=== PATIENT | male | born 1950 | race Caucasian/White ===

== ENCOUNTER 2016-10-23 09:19 | Outpatient (CLI) | payer MEDICARE ==
[2016-10-23 09:57] LABS: CALCIUM 9.3 mg/dL (8.5-10.3); CREATININE 1.3 mg/dL (0.6-1.2); POTASSIUM 3.2 mmol/L (3.5-5.0)
[2016-10-23 10:27] LABS: HEMOGLOBIN A1C 0.82 g/dL
== END 2016-10-23 09:20 | disposition home or self-care (01) ==
LOC: LAB 09:19
PROVIDERS: ATTEND Family Medicine
DX: E87.6 Hypokalemia (principal); Z68.30 Body mass index [BMI] 30.0-30.9, adult
CPT/HCPCS: 36415; 80048; 83036

== ENCOUNTER 2016-11-27 09:33 | Outpatient (CLI) | payer MEDICARE ==
[2016-11-27 09:53] LABS: CALCIUM 9.5 mg/dL (8.5-10.3); CREATININE 1.1 mg/dL (0.6-1.2)
== END 2016-11-27 09:34 | disposition home or self-care (01) ==
LOC: LAB 09:33
PROVIDERS: ATTEND Family Medicine
DX: E87.6 Hypokalemia (principal)
CPT/HCPCS: 36415; 80048

== ENCOUNTER 2017-03-06 11:12 | Outpatient (CLI) | payer MEDICARE ==
[2017-03-06 12:04] LABS: ALBUMIN/GLOBULIN RATIO 1.5 (1.0-2.2); BILIRUBIN,TOTAL 0.7 mg/dL (0.2-1.0); BUN - BLOOD UREA NITROGEN 22 mg/dL (6-20); CALCIUM 9.3 mg/dL (8.5-10.3); CARBON DIOXIDE - CO2 24 mmol/L (21-32); CHLORIDE 104 mmol/L (101-111); CHOL/HDL RATIO 4.1 (<5.0); CHOLESTEROL 130 mg/dL; GFR - MDRD 75 (>89); GLUCOSE 104 mg/dL (70-100); HDL CHOLESTEROL 32 mg/dL; LDL/HDL RATIO 2.4 (<3.6); POTASSIUM 4.1 mmol/L (3.5-5.0); SODIUM 137 mmol/L (135-145); TOTAL PROTEIN 7.1 g/dL (6.7-8.2); TRIGLYCERIDES 104 mg/dL; VLDL CHOLESTEROL 21 mg/dL
[2017-03-06 12:13] LABS: HEMOGLOBIN A1C 0.77 g/dL
== END 2017-03-06 11:13 | disposition home or self-care (01) ==
LOC: LAB 11:12
PROVIDERS: ATTEND Family Medicine
DX: E11.9 Type 2 diabetes mellitus without complications (principal); E78.5 Hyperlipidemia, unspecified
CPT/HCPCS: 36415; 80053; 80061; 83036

== ENCOUNTER 2017-06-05 09:53 | Outpatient (CLI) | payer SELFPAY ==
[2017-06-05] MEDS ORDERED: IVABRADINE 7.5 MG PO ONE (10:38)
[2017-06-05] MEDS ORDERED: IOPAMIDOL-300 100 ML VIAL ONE (10:55)
[2017-06-05] MEDS ORDERED: METOPROLOL 5 MG/5 ML VIAL IVP ONE (12:00)
[2017-06-05] MEDS: NITROGLYCERIN SL 0.4 MG TABLET SL ONE ×2 (12:10→12:29)
[2017-06-05 12:52] VITALS: BP 117/61
[2017-06-05] MEDS ORDERED: IOPAMIDOL-300 100 ML VIAL IVP ONE (13:12)
--- NOTE | 2017-06-06 15:44 | CT Report ---
EXAM: CORONARY ARTERY CTA EXAM DATE: 06/05/2017 12:00 PM. CLINICAL HISTORY: Screening (volunteer). COMPARISON: None. TECHNIQUE: Axial sections were obtained through the heart following the intravenous administration of 75 mL of Isovue 300. 3D reconstructions were obtained. In accordance with CT protocol optimization, one or more of the following dose reduction techniques w ere utilized for this exam: automated exposure control, adjustment of mA and/or KV based on patient s ize, or use of iterative reconstructive technique. FINDINGS: CALCIUM SCORE: The LMA equals 0. The LAD equals 135.09. The left circumflex equals 0. The RCA equals 60.37. The total calcium score is 195.46. The patient is in the 63rd percentile rank. This means th at 37 % of the patients in this age group will have a higher calcium score. DOMINANT ARTERY: Dominant right coronary artery. LEFT MAIN: Moderate caliber vessel which arises anatomic in origin from the left coronary sinus and g malika rise to the left anterior descending and left circumflex coronary arteries in either a ramus bra nch versus early bifurcating first obtuse marginal branch arising from the left circumflex coronary a rtery. No atheromatous disease. No stenosis. LEFT ANTERIOR DESCENDING: Moderate caliber vessel which arises anatomic in origin from the left main coronary artery and gives rise to small caliber first diagonal branch, small to moderate caliber seco nd diagonal branch, and a small caliber third diagonal branch and then extends over the left ventricu lar apex. Small foci of calcified and noncalcified plaque are present in the proximal left anterior d escending coronary artery, causing known more than mild (25-50% %) stenosis which is more likely acce ntuated by the artifact by the calcified plaque. Minimal luminal irregularities are seen more distall y. LEFT CIRCUMFLEX: Small-caliber vessel which arises anatomic in origin from the left main coronary art misbah and gives rise to possibly to an early small-caliber first obtuse marginal branch and then a very small caliber second obtuse marginal branch and then terminates along a third obtuse marginal branch along the left atrioventricular groove. No atheromatous disease. No stenosis. RIGHT CORONARY ARTERY: Moderate caliber vessel which arises anatomic in origin from the right coronar y sinus and gives rise to small acute marginal branches and the posterior descending coronary artery and left ventricular branches. Small foci of calcified plaque in the right proximal coronary artery w ith minimal luminal irregularities causing no more than minimal (less than 25%) stenosis. No severe s tenosis. Cardiac Morphology: Heart size upper normal. No evidence for left atrial appendage thrombus. Appropri ate right and left pulmonary veins enter the left atrium. THORACIC AORTA: The sinuses of Valsalva measure 3.1 cm. The sinotubular junction measures 2.7 cm. The proximal ascending thoracic aorta measures 3.1 cm. No dissection. No significant atheromatous diseas e in the ascending aorta except for punctate calcified plaque along the aortic root. Maximal size of mid descending thoracic aorta measures 2.4 cm. Mild calcified and noncalcified atheromatous plaque. N o dissection. LEFT ATRIAL APPENDAGE: None. PULMONARY ARTERIES: Maximal size of the mid main pulmonary artery is 3.5 cm. No evidence of central e mbolus. CHEST/UPPER ABDOMEN: No enlarged mediastinal lymph nodes. Small hiatal hernia. Basilar scar/atelectas is. No endobronchial obstruction. No pneumothorax. No vascular congestion. Included portions of the liver, stomach, and spleen are unremarkable. Degenerative changes of the thoracic spine. IMPRESSION: 1. Dominant right coronary artery. 2. Nonobstructive coronary artery disease involving the left anterior descending and right coronary a rtery causing no more than mild (25-50 %) stenosis which may be in part accentuated by the calcified plaque. No evidence for severe stenosis. 3. Calcium score of 195.46. This places the patient into the 63rd percentile. This means that 37% of patient's of same age have a higher calcium score. TERESITA Referring Provider Line: [phone] SITE ID: [id number]
== END 2017-06-05 13:46 | disposition home or self-care (01) ==
LOC: DI 09:53 → OBS 09:54 → DI 13:46
PROVIDERS: ATTEND Radiology Diagnostic Radiology
DX: Z13.6 Encounter for screening for cardiovascular disorders (principal); I25.10 Atherosclerotic heart disease of native coronary artery without angina pectoris
CPT/HCPCS: 82565; Q9967; 71275

== ENCOUNTER 2017-06-26 05:59 | Day surgery (SDC) | payer MEDICARE, OTHER ==
[2017-06-26] MEDS ORDERED: LACTATED RINGERS 1,000 ML IV ONE (06:34)
[2017-06-26] MEDS ORDERED: BUPIVACAINE 0.25% PF 30 ML VIAL ONE (07:19)
[2017-06-26] MEDS ORDERED: LIDOCAINE MPF 1%-EPI 1:200000 30 ML VIAL ONE (07:20)
[2017-06-26] MEDS ORDERED: KETOROLAC 30 MG/ML VIAL IVP ONE (07:30)
[2017-06-26] MEDS ORDERED: fentaNYL 250 MCG/5 ML VIAL IVP ONE (07:30)
[2017-06-26] MEDS ORDERED: LIDOCAINE 1%-EPI 1:100000 20 ML MDV ONE (07:44)
[2017-06-26] MEDS ORDERED: BUPIVACAINE 0.25% PF 30 ML VIAL SUBQ ONE ×2 (07:56)
[2017-06-26] MEDS ORDERED: LIDOCAINE 1%-EPI 1:100000 20 ML MDV SUBQ ONE ×2 (07:56)
[2017-06-26 08:40] VITALS: BP 142/78
--- NOTE | 2017-06-26 15:16 | OPERATIVE REPORT ---
DATE OF SERVICE: 06/26/2017 Physician: Freddy Hutson MD PREOPERATIVE DIAGNOSIS: Left hand middle and index trigger fingers. POSTOPERATIVE DIAGNOSIS: Left hand middle and index trigger fingers. PROCEDURE PERFORMED: Release of left middle and left index trigger fingers. SURGEON: Freddy Hutson MD ANESTHESIA: Local and MAC. INDICATIONS FOR SURGERY: Zach is a 67-year-old male with 3-4 months of triggering of the middle finger of his left hand and now with new onset triggering of the index finger. The patient has pain associated with this and desires surgical release for resolution. FINDINGS AT SURGERY: Both sheaths and A1 pulleys were unremarkable, and when released resolved triggering as demonstrated by the patient actually actively flexing his hands. DESCRIPTION OF OPERATIVE PROCEDURE: The patient was taken to the operating room and underwent a light sedation anesthetic, after which the left hand was sterilely prepped and draped in standard fashion. The palmar area of proposed incision was between the index and middle finger at the distal palmar crease approximately 1.5 cm in length. This area was infiltrated after the timeout, utilizing 1% lidocaine with epinephrine and 0.25% Marcaine plain, and using only a few mL. Once anesthesia was adequate, an incision was made and dissection carried down to the flexor sheath of first the index finger and then the middle finger. Each of these exposures was excellent, protecting neurovascular bundles, exposing the sheath and directly incising through the A1 winsome with a scalpel. The same procedure then done on the middle finger. At completion, the area was irrigated thoroughly, infiltration was further placed in the palm and closure was with 4-0 nylon interrupted in the skin. Sterile dressings were applied. The patient was then taken to recovery room in stable condition. ESTIMATED BLOOD LOSS: Minimal. COMPLICATIONS: None. COUNTS: Sponge and needle counts correct. TD: 06/26/2017 15:16
== END 2017-06-26 06:00 | disposition home or self-care (01) ==
LOC: SDS 05:59
PROVIDERS: ATTEND Orthopaedic Surgery
PROC: 0LN80ZZ Release Left Hand Tendon, Open Approach (ICD-10-PCS; principal; 2017-06-26 07:30)
DX: M65.352 Trigger finger, left little finger (principal); M65.332 Trigger finger, left middle finger
CPT/HCPCS: 26055; J3010; J7120

== ENCOUNTER 2018-08-15 08:27 | Outpatient (CLI) | payer MEDICARE, OTHER ==
[2018-08-15 08:47] LABS: BASOPHILS # (AUTO) 0.1 10^3/uL (0.0-0.1); BASOPHILS % (AUTO) 1.7 %; EOSINOPHILS # (AUTO) 0.5 10^3/uL (0.0-0.7); HGB - HEMOGLOBIN 14.7 g/dL (14.0-18.0); LYMPHOCYTES # (AUTO) 1.4 10^3/uL (1.5-3.5); LYMPHOCYTES % (AUTO) 24.8 %; MEAN CORPUSCULAR HEMOGLOBIN 30.9 pg (27.0-31.0); MEAN CORPUSCULAR HGB CONC 33.7 g/dL (32.0-36.0); MEAN CORPUSCULAR VOLUME 91.8 fL (80.0-94.0); MEAN PLATELET VOLUME 6.6 fL (7.4-11.4); MONOCYTES # (AUTO) 0.4 10^3/uL (0.0-1.0); MONOCYTES % (AUTO) 6.6 %; NEUTROPHILS # (AUTO) 3.3 10^3/uL (1.5-6.6); NEUTROPHILS % (AUTO) 57.9 %; PLT - PLATELET COUNT 231 10^3/uL (130-450); RED BLOOD COUNT 4.77 10^6/uL (4.70-6.10); RED CELL DISTRIBUTION WIDTH 13.8 % (12.0-15.0); WHITE BLOOD COUNT 5.8 x10^3/uL (4.8-10.8)
[2018-08-15 09:04] LABS: ALBUMIN 4.2 g/dL (3.2-5.5); ALBUMIN/GLOBULIN RATIO 1.6 (1.0-2.2); ALKALINE PHOSPHATASE 88 IU/L (42-121); ALT ALANINE AMINOTRANSFERASE 28 IU/L (10-60); AST ASPARTATE AMINOTRANSFERASE 22 IU/L (10-42); BUN - BLOOD UREA NITROGEN 23 mg/dL (6-20); CALCIUM 9.4 mg/dL (8.5-10.3); CARBON DIOXIDE - CO2 26 mmol/L (21-32); CHLORIDE 101 mmol/L (101-111); CHOL/HDL RATIO 4.3 (<5.0); CHOLESTEROL 120 mg/dL; GFR - MDRD 74 (>89); GLUCOSE 108 mg/dL (70-100); HDL CHOLESTEROL 28 mg/dL; LDL CHOLESTEROL,CALCULATED 74 mg/dL; LDL/HDL RATIO 2.6 (<3.6); SODIUM 138 mmol/L (135-145); TOTAL PROTEIN 6.9 g/dL (6.7-8.2); VLDL CHOLESTEROL 18 mg/dL
[2018-08-15 09:51] LABS: HEMOGLOBIN A1C 0.77 g/dL; HEMOGLOBIN A1C % 6.6 % (4.6-6.2)
== END 2018-08-15 08:28 | disposition home or self-care (01) ==
LOC: LAB 08:27
PROVIDERS: ATTEND Family Medicine
DX: I10 Essential (primary) hypertension (principal); E11.9 Type 2 diabetes mellitus without complications; I49.3 Ventricular premature depolarization; E87.6 Hypokalemia; E78.5 Hyperlipidemia, unspecified
CPT/HCPCS: 36415; 80053; 80061; 83036; 83721; 85025

== ENCOUNTER 2018-09-03 08:12 | Outpatient (CLI) | payer MEDICARE, OTHER ==
[2018-09-03 10:24] LABS: HB2 TOTAL 14.9 g/dL; HEMOGLOBIN A1C 0.67 g/dL; HEMOGLOBIN A1C % 6.3 % (4.6-6.2)
== END 2018-09-03 08:13 | disposition home or self-care (01) ==
LOC: LAB 08:12
PROVIDERS: ATTEND Family Medicine
DX: E11.9 Type 2 diabetes mellitus without complications (principal)
CPT/HCPCS: 36415; 83036

== ENCOUNTER 2019-02-04 08:15 | Outpatient (CLI) | payer MEDICARE, OTHER ==
[2019-02-04 08:34] LABS: BASOPHILS % (AUTO) 0.7 %; EOSINOPHILS # (AUTO) 0.6 10^3/uL (0.0-0.7); EOSINOPHILS % (AUTO) 10.6 %; HGB - HEMOGLOBIN 14.2 g/dL (14.0-18.0); LYMPHOCYTES # (AUTO) 1.4 10^3/uL (1.5-3.5); LYMPHOCYTES % (AUTO) 25.9 %; MEAN CORPUSCULAR HEMOGLOBIN 31.5 pg (27.0-31.0); MEAN CORPUSCULAR VOLUME 92.7 fL (80.0-94.0); MEAN PLATELET VOLUME 8.6 fL (7.4-11.4); MONOCYTES # (AUTO) 0.5 10^3/uL (0.0-1.0); MONOCYTES % (AUTO) 10.1 %; NEUTROPHILS # (AUTO) 2.8 10^3/uL (1.5-6.6); NEUTROPHILS % (AUTO) 52.5 %; PLT - PLATELET COUNT 202 10^3/uL (130-450); RED BLOOD COUNT 4.51 10^6/uL (4.70-6.10); RED CELL DISTRIBUTION WIDTH 12.8 % (12.0-15.0); WHITE BLOOD COUNT 5.4 x10^3/uL (4.8-10.8)
[2019-02-04 08:47] LABS: HB2 TOTAL 14.8 g/dL; HEMOGLOBIN A1C 0.7 g/dL; HEMOGLOBIN A1C % 6.5 % (4.6-6.2)
[2019-02-04 08:58] LABS: ALBUMIN 4.3 g/dL (3.2-5.5); ALBUMIN/GLOBULIN RATIO 1.7 (1.0-2.2); ALKALINE PHOSPHATASE 69 IU/L (42-121); ALT ALANINE AMINOTRANSFERASE 23 IU/L (10-60); AST ASPARTATE AMINOTRANSFERASE 21 IU/L (10-42); BILIRUBIN,TOTAL 0.9 mg/dL (0.2-1.0); BUN - BLOOD UREA NITROGEN 25 mg/dL (6-20); CALCIUM 9.1 mg/dL (8.5-10.3); CARBON DIOXIDE - CO2 28 mmol/L (21-32); CHLORIDE 104 mmol/L (101-111); CHOL/HDL RATIO 3.6 (<5.0); CHOLESTEROL 113 mg/dL; CREATININE 1.2 mg/dL (0.6-1.2); GFR - MDRD 60 (>89); GLUCOSE 119 mg/dL (70-100); HDL CHOLESTEROL 31 mg/dL; LDL CHOLESTEROL,CALCULATED 70 mg/dL; LDL/HDL RATIO 2.3 (<3.6); SODIUM 140 mmol/L (135-145); TOTAL PROTEIN 6.8 g/dL (6.7-8.2); VLDL CHOLESTEROL 12 mg/dL
== END 2019-02-04 08:16 | disposition home or self-care (01) ==
LOC: LAB 08:15
PROVIDERS: ATTEND Family Medicine
DX: I27.20 Pulmonary hypertension, unspecified (principal); E78.5 Hyperlipidemia, unspecified; I10 Essential (primary) hypertension; E11.9 Type 2 diabetes mellitus without complications
CPT/HCPCS: 36415; 80053; 80061; 83036; 83721; 85025

== ENCOUNTER 2019-06-16 08:07 | Outpatient (CLI) | payer MEDICARE, OTHER ==
[2019-06-16 08:59] LABS: BASOPHILS % (AUTO) 0.7 %; EOSINOPHILS # (AUTO) 0.2 10^3/uL (0.0-0.7); EOSINOPHILS % (AUTO) 4.3 %; HGB - HEMOGLOBIN 15.1 g/dL (14.0-18.0); LYMPHOCYTES % (AUTO) 23.3 %; MEAN CORPUSCULAR HGB CONC 34.2 g/dL (32.0-36.0); MEAN CORPUSCULAR VOLUME 93.4 fL (80.0-94.0); MEAN PLATELET VOLUME 8.7 fL (7.4-11.4); MONOCYTES # (AUTO) 0.5 10^3/uL (0.0-1.0); NEUTROPHILS # (AUTO) 2.7 10^3/uL (1.5-6.6); NEUTROPHILS % (AUTO) 60.5 %; PLT - PLATELET COUNT 226 10^3/uL (130-450); RED BLOOD COUNT 4.72 10^6/uL (4.70-6.10); RED CELL DISTRIBUTION WIDTH 12.9 % (12.0-15.0); WHITE BLOOD COUNT 4.4 x10^3/uL (4.8-10.8)
[2019-06-16 09:16] LABS: HB2 TOTAL 15.1 g/dL; HEMOGLOBIN A1C 0.69 g/dL; HEMOGLOBIN A1C % 6.3 % (4.6-6.2)
[2019-06-16 09:21] LABS: ALBUMIN 4.6 g/dL (3.2-5.5); ALBUMIN/GLOBULIN RATIO 1.8 (1.0-2.2); ALKALINE PHOSPHATASE 67 IU/L (42-121); ALT ALANINE AMINOTRANSFERASE 25 IU/L (10-60); AST ASPARTATE AMINOTRANSFERASE 52 IU/L (10-42); BILIRUBIN,TOTAL 1.7 mg/dL (0.2-1.0); BUN - BLOOD UREA NITROGEN 31 mg/dL (6-20); CALCIUM 9.4 mg/dL (8.5-10.3); CARBON DIOXIDE - CO2 26 mmol/L (21-32); CHLORIDE 101 mmol/L (101-111); CHOL/HDL RATIO 3.3 (<5.0); CHOLESTEROL 117 mg/dL; CREATININE 1.3 mg/dL (0.6-1.2); GFR - MDRD 55 (>89); GLUCOSE 99 mg/dL (70-100); HDL CHOLESTEROL 36 mg/dL; LDL CHOLESTEROL,CALCULATED 68 mg/dL; LDL/HDL RATIO 1.9 (<3.6); SODIUM 138 mmol/L (135-145); TOTAL PROTEIN 7.2 g/dL (6.7-8.2); VLDL CHOLESTEROL 13 mg/dL
== END 2019-06-16 08:08 | disposition home or self-care (01) ==
LOC: LAB 08:07
PROVIDERS: ATTEND Family Medicine
DX: E78.5 Hyperlipidemia, unspecified (principal); N52.9 Male erectile dysfunction, unspecified; E11.9 Type 2 diabetes mellitus without complications
CPT/HCPCS: 36415; 80053; 80061; 83036; 83721; 84403; 84443; 85025

== ENCOUNTER 2020-08-03 09:43 | Outpatient (CLI) | payer MEDICARE, OTHER ==
[2020-08-03 09:59] LABS: BASOPHILS % (AUTO) 0.8 %; EOSINOPHILS # (AUTO) 0.4 10^3/uL (0.0-0.7); EOSINOPHILS % (AUTO) 8.4 %; HCT - HEMATOCRIT 44.3 % (42.0-52.0); HGB - HEMOGLOBIN 14.9 g/dL (14.0-18.0); LYMPHOCYTES # (AUTO) 1.3 10^3/uL (1.5-3.5); LYMPHOCYTES % (AUTO) 27.3 %; MEAN CORPUSCULAR HGB CONC 33.6 g/dL (32.0-36.0); MEAN CORPUSCULAR VOLUME 95.3 fL (80.0-94.0); MEAN PLATELET VOLUME 8.7 fL (7.4-11.4); MONOCYTES # (AUTO) 0.5 10^3/uL (0.0-1.0); MONOCYTES % (AUTO) 10.7 %; NEUTROPHILS # (AUTO) 2.5 10^3/uL (1.5-6.6); NEUTROPHILS % (AUTO) 52.6 %; PLT - PLATELET COUNT 192 10^3/uL (130-450); RED BLOOD COUNT 4.65 10^6/uL (4.70-6.10); RED CELL DISTRIBUTION WIDTH 12.4 % (12.0-15.0); WHITE BLOOD COUNT 4.8 x10^3/uL (4.8-10.8)
[2020-08-03 10:28] LABS: ALBUMIN 4.4 g/dL (3.2-5.5); ALBUMIN/GLOBULIN RATIO 1.8 (1.0-2.2); ALKALINE PHOSPHATASE 70 IU/L (42-121); ALT ALANINE AMINOTRANSFERASE 30 IU/L (10-60); AST ASPARTATE AMINOTRANSFERASE 27 IU/L (10-42); BUN - BLOOD UREA NITROGEN 29 mg/dL (6-20); CALCIUM 9.5 mg/dL (8.5-10.3); CARBON DIOXIDE - CO2 26 mmol/L (21-32); CHLORIDE 107 mmol/L (101-111); CHOL/HDL RATIO 3.7 (<5.0); CHOLESTEROL 133 mg/dL; CREATININE 1.1 mg/dL (0.6-1.2); GFR - MDRD 66 (>89); GLUCOSE 131 mg/dL (70-100); HDL CHOLESTEROL 36 mg/dL; LDL CHOLESTEROL,CALCULATED 84 mg/dL; LDL/HDL RATIO 2.3 (<3.6); POTASSIUM 4.1 mmol/L (3.5-5.0); SODIUM 141 mmol/L (135-145); TOTAL PROTEIN 6.8 g/dL (6.7-8.2); TRIGLYCERIDES 63 mg/dL; VLDL CHOLESTEROL 13 mg/dL
== END 2020-08-03 09:44 | disposition home or self-care (01) ==
LOC: LAB 09:43
PROVIDERS: ATTEND Family Medicine
DX: Z00.00 Encounter for general adult medical examination without abnormal findings (principal); I10 Essential (primary) hypertension; E78.5 Hyperlipidemia, unspecified
CPT/HCPCS: 36415; 80053; 80061; 83721; 85025

== ENCOUNTER 2020-08-05 08:00 | Outpatient (CLI) | payer MEDICARE, OTHER ==
--- NOTE | 2020-08-05 16:12 | XRAY Report ---
PROCEDURE: Hand 3 View BILAT INDICATIONS: BILATERAL HAND PAIN TECHNIQUE: 6 views of the hand(s) acquired. COMPARISON: None. FINDINGS: No fracture. On the right, there are marginal lucency seen at the little finger DIP joint Scattered subchondral sc lerosis and spurring. Lucency also seen in the scaphoid waist. On the left, Scattered subchondral sclerosis and spurring. IMPRESSION: Marginal lucencies at the right little finger DIP joint possibly cysts versus erosions. Scattered degenerative subchondral sclerosis and spurring. Reviewed by: Chris Seaman MD on 08/05/2020 4:11 PM PDT Approved by: Chris Seaman MD on 08/05/2020 4:11 PM PDT Station ID: [id number]
== END 2020-08-05 23:59 | disposition home or self-care (01) ==
LOC: DI.N 08:00
PROVIDERS: ATTEND Physician Assistant
DX: M79.641 Pain in right hand (principal); M79.642 Pain in left hand; M77.8 Other enthesopathies, not elsewhere classified

== ENCOUNTER 2021-04-23 07:40 | Outpatient (CLI) | payer MEDICARE ==
--- NOTE | 2021-04-23 09:07 | Ultrasound Report ---
PROCEDURE: Abdomen Limited INDICATIONS: ruq ABD PX TECHNIQUE: Real-time focused scanning was performed of the abdomen, with image documentation. COMPARISON: None FINDINGS: The liver measures 13.7 cm in length. There is diffuse increased echogenicity. No evidence of intrahe patic ductal dilation, focal lesion, or abnormal flow within the portal vein. The gallbladder demonstrates normal wall thickness without pericholecystic fluid. No gallstones. The common bile duct measures 2 mm. The imaged portions of the proximal pancreas are unremarkable. The right kidney is normal in size and echogenicity. No evidence of obstruction. No fluid identified. IMPRESSION: Findings most consistent with hepatic steatosis. No gallstones are evidence of cholecystitis. Reviewed by: Robby Houser DO on 04/23/2021 8:05 AM SARAH Approved by: Robby Houser DO on 04/23/2021 8:05 AM SARAH Station ID: [id number]
== END 2021-04-23 07:41 | disposition home or self-care (01) ==
LOC: DI 07:40
PROVIDERS: ATTEND Family Medicine
DX: R10.11 Right upper quadrant pain (principal); R93.2 Abnormal findings on diagnostic imaging of liver and biliary tract